=== PATIENT | male | born 1970 | race Two or more races ===

== ENCOUNTER 2021-09-14 16:44 | Emergency (ER) | payer BC, MEDICAID ==
[~2021-09-14] VITALS: Ht 182.9 cm; Wt 94.3 kg
[2021-09-14] MEDS ORDERED: ONDANSETRON HCL 4 MG/2 ML VIAL IV ONE (17:00)
[2021-09-14] MEDS ORDERED: SODIUM CHLORIDE 0.9% 1,000 ML IV ONE (17:00)
[2021-09-14 17:37] LABS: Basophils # (auto) 0.1 10 ^3/uL (0-0.2); Basophils % (auto) 0.8 % (0.0-2.0); Eosinophils # (auto) 0.4 10 ^3/uL (0-0.8); Eosinophils % (auto) 3.9 % (0.0-7.0); Hematocrit 45.4 % (41.0-53.0); Hemoglobin 15.7 g/dL (13.5-17.5); Lymphocytes % (auto) 21.3 % (10.0-50.0); Mean Corpuscular Hemoglobin 27.5 pg (28.0-32.0); Mean Corpuscular Hgb Conc. 34.6 g/dL (32.0-36.0); Mean Corpuscular Volume 79.5 fL (80.0-100.0); Monocytes # (auto) 0.7 10 ^3/uL (0-1.3); Monocytes % (auto) 7.6 % (0.0-12.0); Neutrophils # (auto) 6.3 10 ^3/uL (1.6-8.6); Neutrophils % (auto) 66.4 % (37.0-80.0); Nucleated Red Blood Cells % 1.1 %; Red Cell Distribution Width 15.1 % (11.8-14.3); White Blood Cell 9.4 10^3/uL (4.4-10.8)
[2021-09-14 17:56] LABS: BUN/Creatinine Ratio 20.4; Calcium 9.3 mg/dL (8.5-10.1)
[2021-09-14 17:58] LABS: Bilirubin, Total 0.7 mg/dL (0.2-1.0); Total Protein 7.4 g/dL (6.4-8.2)
[2021-09-14] MEDS ORDERED: ONDA-144 PO (19:32)
[2021-09-14] MEDS ORDERED: POTASSIUM CHL 20 Meq TABLET PO ONE (19:45)
[2021-09-14 20:00] VITALS: BP 137/76
== END 2021-09-14 20:11 | disposition home or self-care (01) ==
LOC: ER 16:44
DX: E86.0 Dehydration (principal); E87.6 Hypokalemia; E11.65 Type 2 diabetes mellitus with hyperglycemia; E78.5 Hyperlipidemia, unspecified; I10 Essential (primary) hypertension; Z90.89 Acquired absence of other organs
CPT/HCPCS: 36415; 71046; 80053; 82010; 82962; 85025; 93005; 96361; 96374; 99285; J2405; J7030